=== PATIENT | female | born 1995 | race Caucasian/White ===

== ENCOUNTER 2018-04-03 12:47 | Day surgery (SDC) | payer SELFPAY ==
[2018-04-03 13:24] LABS: #Basophils 0.1 thou/uL (0.0-0.2); #Eosinphils 0.1 thou/uL (0.0-0.7); #Lymphocytes 2.8 thou/uL (1.20-3.40); #Monocytes 0.5 thou/uL (0.11-0.59); #Neutrophils 6.8 thou/uL (1.40-6.50); %Basophils 0.8 % (0.0-1.0); %Eosinophils 1.3 % (0.0-10.0); %Lymphocytes 27.1 % (28.0-48.0); %Monocytes 5.3 % (0.0-4.0); %Neutrophils 65.5 % (31.0-61.0); Mean Corpuscular HGB CONC 31.8 g/dL (32.0-36.0); Mean Corpuscular Hemoglobin 23.5 pg (25.0-35.0); Mean Corpuscular Volume 73.9 fL (78.0-98.0); Mean Platelet Volume 10.5 fL (7.4-10.4); Platelet Count 289 thou/uL (130-400); RBC Distribution Width 17.8 % (11.5-14.5); White Blood Cell (WBC) Count 10.3 thou/uL (4.8-10.8)
[2018-04-03] MEDS ORDERED: Morphine 4 MG/ML VIAL ONE (13:51)
[2018-04-03] MEDS ORDERED: Rocuronium Bromide 10 MG/ML (10ML VIAL) ONE (15:01)
[2018-04-03] MEDS ORDERED: PROPOFOL 200 MG/20 ML VIAL ONE (15:01)
[2018-04-03] MEDS ORDERED: Ondansetron PF 4 MG/2 ML Vial ONE (15:01)
[2018-04-03] MEDS ORDERED: Lidocaine 1% PF 5 ML VIAL ONE ×2 (15:01)
[2018-04-03] MEDS ORDERED: Bupivacaine HCl 0.5%/Epinephrine 1:200,000/PF 30 ml Vial ONE (15:23)
[2018-04-03] MEDS ORDERED: Fentanyl 100 MCG/2 ML VIAL ONE ×4 (16:19→18:36)
[2018-04-03] MEDS ORDERED: Meperidine HCl/PF 25 MG/ML VIAL ONE (18:19)
[2018-04-03] MEDS ORDERED: HYDROcodone/Acetaminophen 5/325 mg Tablet ONE ×2 (19:51)
--- NOTE | 2018-04-04 01:32 | OP ---
DATE OF PROCEDURE: 04/03/2018 PREOPERATIVE DIAGNOSIS: Suspected ectopic on the left. POSTOPERATIVE DIAGNOSIS: Left tubal . PROCEDURES PERFORMED: Diagnostic laparoscopy with salpingostomy and excision of ectopic . ANESTHESIA: General. ESTIMATED BLOOD LOSS: Less than 20 mL. URINE OUTPUT: 600 mL at the end of the case. SPECIMENS: Products of conception. FINDINGS: Normal appearing uterus, normal right tube and ovary. Normal left ovary. Small, but visible ectopic is seen in the left ampullary portion of the left tube. Normal-appearing cul-de-sac, ovarian fossa, appendix, smooth, homogeneous liver edge. DESCRIPTION OF PROCEDURE: The patient is a 22-year-old, G2, P1 female who presented to the emergency room with left lower quadrant pain x1 day. The patient was initially seen at [facility], where she was diagnosed with a left-sided ectopic . The patient was then subsequently transferred to the emergency room here at [facility], where [employer] hospitalist was consulted. On my initial evaluation, the patient reports she was having severe left-sided pain. We discussed the findings of beta-hCG of 3500. No intrauterine and left adnexal mass visible. Given the patient's level of pain, recommendations were made for surgical intervention. We discussed the risks and benefits of a diagnostic laparoscopy with salpingostomy versus salpingectomy. The patient expressed understanding and desired to proceed. She was placed under general anesthesia without difficulty and placed in dorsal lithotomy position in [facility]. She was prepared and draped in normal sterile fashion. Attention was placed vaginally, where a single-tooth tenaculum was then applied to the anterior lip of the cervix with the aid of an operative speculum, a uterine manipulator was then used to grasp the anterior lip of the cervix at 12 o'clock with the insertion of the manipulator into the cervical os. De Leon catheter was also placed by myself just prior to this portion of the case. Attention was placed abdominally, where a 5 mm skin incision was made in the base of the umbilicus. A 1 cm incision was also made suprapubically in the midline. A Veress needle was introduced into the abdominal cavity and the abdomen was insufflated with entry pressure at about 3 mmHg. After the abdomen was insufflated to 13 to 15 mmHg, a 5 mm port with trocar was then inserted through the incision in the umbilicus. Proper placement was confirmed by laparoscope. Upon inspection of the pelvis, uterus, and tubes, it was clear that the patient had a tubal on the left and the ampullary portion of the tube close to the isthmus. Given the small dimension of the ectopic , the decision was then made to attempt a salpingostomy for removal of the ectopic, this was done with monopolar energy and a small subcentimeter incision was then made at the dorsal surface of the tube at the site of the ectopic . The products of conception were then gently squeezed out of the tube and then removed through the port and sent for pathology to review. The tube was then irrigated and hemostasis was achieved with pressure, monopolar energy, and gentle pressure to the ectopic site. The tube became hemostatic. The abdomen was then inspected for any signs of endometriosis or other pathology. Inspection of the anterior and posterior cul-de-sac and ovarian fossa did not demonstrate any significant evidence of concern. The appendix was also visualized and appeared to be normal as did the liver appeared to be normal with gallbladder present. Upon completion of the inspection of the abdomen, attention was then placed again to the left tube at the site of the incision, it did appear to be hemostatic with no evidence of bleeding or fluid collection within the prior site of ectopic. With the surgery completed and hemostasis confirmed, the abdomen was then deflated and the surgical sites were then repaired. At the suprapubic site, the 10 mm incision had a fascial closure with a single interrupted of 0 Vicryl on a UR6. The skin was closed with 4-0 Monocryl. The other remaining incisions were also closed with 4-0 Monocryl. The single-tooth tenaculum and uterine manipulator were then removed from the cervix and the cervix was inspected with the aid of a speculum and found to be hemostatic. At this point, the patient was then awoken from anesthesia and taken to recovery room in stable condition. I had the opportunity to discuss the case with the patient and answer any questions that she had. We did communicate with her that her tube remains intact. Job ID: [id number]
== END 2018-04-03 20:41 | disposition home or self-care (01) ==
LOC: ERS 12:47 → SDC 15:28
PROVIDERS: ATTEND Obstetrics & Gynecology
PROC: 10T24ZZ Resection of Products of Conception, Ectopic, Percutaneous Endoscopic Approach (ICD-10-PCS; principal; 2018-04-03)
DX: O00.102 Left tubal pregnancy without intrauterine pregnancy (principal); F98.8 Other specified behavioral and emotional disorders with onset usually occurring in childhood and adolescence; Z87.891 Personal history of nicotine dependence
CPT/HCPCS: 36415; 84702; 85025; 86900; 86901; 88305; 96361; 96374; J0670; J2001; J2175; J2270; J2405; J2704; J3010